=== PATIENT | male | born 1965 | race Hispanic/Latino ===

== ENCOUNTER 2020-02-23 06:58 | Outpatient (CLI) | payer BC ==
--- NOTE | 2020-02-23 07:51 | ULT ---
ULTRASOUND ABDOMEN LIMITED: (RIGHT UPPER QUADRANT) DATE: 02/23/2020 HISTORY: 54-year-old male with right upper quadrant abdominal pain FINDINGS: Gallbladder: Normal wall thickness. No gallstones or sludge identified. No pericholecystic fluid. Liver: Normal parenchymal echogenicity. Right kidney: No hydronephrosis. Pancreas: Mostly Obscured by shadowing from bowel gas. Common duct caliber: 5 mm. IMPRESSION: 1) no pathology identified. 2) pancreas poorly visualized.
== END 2020-02-23 06:59 | disposition home or self-care (01) ==
LOC: BICULT 06:58
PROVIDERS: ATTEND Family Medicine
DX: R10.11 Right upper quadrant pain (principal)
CPT/HCPCS: 76705

== ENCOUNTER 2023-01-17 17:30 | Outpatient (CLI) | payer BC | END 2023-01-17 17:31 | disposition home or self-care (01) | LOC: SLEEPLAB 17:30 | PROVIDERS: ATTEND Family Medicine | DX: G47.33 Obstructive sleep apnea (adult) (pediatric) (principal); G47.10 Hypersomnia, unspecified; G47.419 Narcolepsy without cataplexy; G31.84 Mild cognitive impairment of uncertain or unknown etiology; E66.9 Obesity, unspecified; R06.83 Snoring; G47.9 Sleep disorder, unspecified; R53.83 Other fatigue; Z68.30 Body mass index [BMI] 30.0-30.9, adult | CPT/HCPCS: 95800 ==

== ENCOUNTER 2023-04-26 09:04 | Outpatient (CLI) | payer BC | END 2023-04-26 09:05 | disposition home or self-care (01) | LOC: BICMAMMO 09:04 | PROVIDERS: ATTEND Family Medicine | DX: N63.42 Unspecified lump in left breast, subareolar (principal) | CPT/HCPCS: 77066; G0279 ==

== ENCOUNTER 2023-05-31 10:33 | Outpatient (CLI) | payer BC ==
[2023-05-31] MEDS ORDERED: Magnevist 469MG/ML 20 ML VIAL ONE (14:04)
== END 2023-05-31 10:34 | disposition home or self-care (01) ==
LOC: MRI 10:33
PROVIDERS: ATTEND Psychiatry & Neurology Neurology
DX: M48.02 Spinal stenosis, cervical region (principal); M47.812 Spondylosis without myelopathy or radiculopathy, cervical region
CPT/HCPCS: 72156; A9579